=== PATIENT | female | born 1980 | race Caucasian/White ===

== ENCOUNTER 2018-04-24 12:06 | Day surgery (SDC) | payer OTHER, SELFPAY ==
[2018-04-12 10:49] LABS: Hematocrit 32.9 % (37-47); Hemoglobin 10.5 g/dl (12.0-15.0); International Normalized Ratio 0.9; Mean Corp Hgb Conc 31.9 g/gl (32-36); Mean Corpuscular Hgb 27.6 pg (27.0-32.0); Mean Corpuscular Volume 86.6 fL (81-99); Mean Platelet Vol. 10.9 fl (6.2-12.0); Platelet Count 265 K/mm3 (150-450); Prothrombin Time (Protime)PT. 12.5 SECONDS (11.7-14.9); RBC Distribution Width CV 18.4 % (11.6-14.6); RBC Distribution Width SD 57.2 fl (35.1-43.9); White Blood Count 3.7 K/mm3 (4.4-11.0)
[2018-04-12 10:50] LABS: Partial Thromboplast Time 26.5 Seconds (24.1-36.2)
[2018-04-12 10:56] LABS: Scan Indicated on CBC? Y/N NO
[2018-04-12 11:13] LABS: Anion Gap 6 (5-15); BUN 11 mg/dL (7-18); BUN/Creat Ratio 11.1 RATIO (10-20); Calcium,Total 8.5 mg/dL (8.5-10.1); Chloride 108 mmol/L (98-107); Creatinine, Serum 0.99 mg/dL (0.55-1.02); EST Glomerular Filtration Rate 66 mL/min (>60); Est Glom Filt Rate - Afr Amer 80 mL/min (>60); Glucose 89 mg/dL (74-106); Potassium 4.1 mmol/L (3.5-5.1); Sodium Level 140 mmol/L (136-145)
[2018-04-24] VITALS (9 sets, daily range): BP systolic 106–144; BP diastolic 52–77; PULSE 63–74; RESP 16–18; TEMP 36.2–37.1; O2SAT 95–100; BMI 32.4; BMI 32.5
[2018-04-24 12:46] LABS: Internal QC Validated? YES +Cl - CLEAR BKGD; Pregnancy, Urine Negative Negative
--- NOTE | 2018-04-24 13:45 | HYST_PTH ---
PATIENT: STEPHANY GAMBOA LOC: [facility] – [place] U#:[id number] AGE/SX: 37/F ROOM: RE04/24/[address]: Dr. Holly Bennett MD : 1980 BED: DIS: 04/25/2018 SPEC #: [id number] RECD: 04/25/18 08:38 STATUS: ISAIAS TYELR #: [id number] SILVIA: 04/24/18 13:[address]: Holly Bennett DEPT: SURGICAL PATHOLOGY RECD BY: Chance Minaya ENTERED: 04/25/18 09:06 SP TYPE: HYSTERECT OTHR DR: Dr. Jennifer Loaiza MD Tissues: Uterus, NOS Procedures: Surgery Specimen Level V HEADER OPERATION: Hysterectomy, lap-assisted vaginal, salpingectomy PRE-OP DIAGNOSIS: Submucous leiomyoma, excessive bleeding in premenopausal period TISSUE SUBMITTED: Uterus, bilateral fallopian tubes MICROSCOPIC DIAGNOSIS Uterus, hysterectomy: Cervix ? nabothian cysts, squamous metaplasia and mild chronic inflammation. Endometrium ? secretory endometrium. Myometrium ? leiomyoma. Right and left fallopian tubes ? no pathologic change. AM:rustam 04/26/18 MICROSCOPIC DESCRIPTION Slides are reviewed. GROSS DESCRIPTION Received in fixative is one container labeled with the patient's name and designated uterus, bilateral fallopian tubes. The specimen consists of a hysterectomy specimen consisting of uterus with cervix in multiple pieces and attached one fallopian tube to one of the pieces of uterus and one detached fallopian tube. The uterus with cervix weighs in aggregate 331 gm. The cervix measures 5.5 x 4 x 2.5 cm. The ectocervical mucosa is focally congested. The external os is oval and patulous in contour. The endocervical canal measures 4 cm in length and the endocervical mucosa is caceres, glistening and unremarkable. Sections of cervix reveal a few cysts filled with mucoid material. The uterus in multiple pieces measures in aggregate 15 x 15 x 6 cm. Sections of one of the pieces reveal possible endometrial cavity which measures 0.1 cm in thickness, congested and hemorrhagic and without any mass lesion. One of the detached pieces of tissue consists of nodular mass measuring 6 cm in diameter. Sections of this mass reveals caceres whorled cut surfaces without areas of hemorrhage, necrosis or cystic degeneration. Sections of the rest of the specimen reveal no additional mass lesion and uterine wall measures up to 3 cm in thickness. The detached fallopian tube is similar appearance to the other one and measures 6 cm in length and 0.5 cm in diameter. Oncology Radiation Physician sections are submitted in 11 cassettes as follows: 1 & 2 - cervix, 3-6 - uterine wall with possible endometrial lining tissue, 7-9 ? nodular mass, 10 ? attached fallopian tube, 11 ? detached fallopian tube. / Naresh 04/25/18 TC:1 CPT: 22122
--- NOTE | 2018-04-24 13:57 | PCM.DC.VHY ---
Discharge Diet: No Restrictions Discharge Activity: May not drive while taking narcotic pain medications., May Shower, May Take a Tub Bath Return to work on:: 06/10/18 May resume sexual activity in: 4-6 weeks Lifting Restrictions: limit to 20 lbs for 4-6 wks to allow healing. Call your doctor if you observe: Fever of 101 or Higher, Using more than one pad per hour, Calf discomfort, Uncontrolled pain Change Dressing in (Days):: 4 Remove Dressing in (days):: 4 Cleanse incision/area with: Soap & Water, Keep Dressing Clean & Dry Allergies/Adverse Reactions: Allergies Penicillins [PCN] Allergy (Verified 04/11/18 13:36) Rash Medications to take at Discharge L.acidoph,Paracasei, B.lactis [Probiotic] 1 each PO DAILY 04/11/18 Omeprazole 40 mg PO DAILY 04/11/18 traZODone [Desyrel] 150 mg PO QHS 04/11/18 Docusate Sodium [Colace] 100 mg PO BID #30 cap 04/24/18 Ferrous Sulfate [Iron] 325 mg PO BID #60 tab 04/24/18 Ibuprofen 800 mg PO Q8H PRN PRN #30 tab 04/24/18 Oxycodone [Oxyir] 5 - 10 mg PO Q6H PRN PRN 7 Days #28 tablet 04/24/18 Polyethylene Glycol 3350 [Miralax] 17 gm PO DAILY PRN #10 packet 04/24/18 The following prescriptions were given: Oxycodone [Oxyir] 5 - 10 mg PO Q6H PRN PRN 7 Days #28 tablet PRN Reason: Mod-Severe Pain (4-10/10) Ibuprofen 800 mg PO Q8H PRN PRN #30 tab PRN Reason: Mild-Mod Pain (1-5/10) Polyethylene Glycol 3350 [Miralax] 17 gm PO DAILY PRN #10 packet PRN Reason: Constipation Docusate Sodium [Colace] 100 mg PO BID #30 cap Ferrous Sulfate [Iron] 325 mg PO BID #60 tab Primary Care Physician: Jennifer Loaiza [Primary Care Provider] - Please Follow Up With: Holly Bennett MD - [phone] When: in 2 wk for postop appointment
--- NOTE | 2018-04-24 16:06 | PCM.IMDPSTOP ---
Immediate Post-Op Note Date of Procedure: 04/24/18 Primary Surgeon/Physician: Holly Bennett lap layer: Hina Mace lap layer: Anahy Valera RN Pre-Operative Diagnosis: Menorrhagia, fibroid uterus, chronic blood loss anemia Post-Operative Diagnosis: Same. S/P LAVH, bilateral salpingectomy Surgery/Procedure Performed:: LAVH, bilateral salpingectomy Description of Surgical Findings:: See op note to follow. Bilateral salpingectomy. Uterus sent as morcellated specimen. (morcellated transvaginally) Estimated Blood Loss: 490 Specimen's removed: Morcellated uterus, bilateral fallopian tubes Drains: grady, clear yellow urine 190 cc + for case Type of Anesthesia:: General - AA. Dr. Gideon Pruitt. - Admit VTE Documentation VTE Present on Admission: No VTE Mechan Device Prophylaxis: SCD's VTE Pharm Prophylaxis ordered?: Yes
--- NOTE | 2018-04-24 16:09 | OP.PN_ITS ---
Immediate Post-Op Note Date of Procedure: 04/24/18 Primary Surgeon/Physician: Holly Bennett back stayer: Hina Mace back stayer: Anahy Valera RN Pre-Operative Diagnosis: Menorrhagia, fibroid uterus, chronic blood loss anemia Post-Operative Diagnosis: Same. S/P LAVH, bilateral salpingectomy Surgery/Procedure Performed:: LAVH, bilateral salpingectomy Description of Surgical Findings:: See op note to follow. Bilateral salpingectomy. Uterus sent as morcellated specimen. (morcellated transvaginally) Estimated Blood Loss: 490 Specimen's removed: Morcellated uterus, bilateral fallopian tubes Drains: grady, clear yellow urine 190 cc + for case Type of Anesthesia:: General - AA. Dr. Gideon Pruitt. - Admit VTE Documentation VTE Present on Admission: No VTE Mechan Device Prophylaxis: SCD's VTE Pharm Prophylaxis ordered?: Yes
[2018-04-24] MEDS: Lactated Ringers 1,000 ML 125 ML IV ×2 (17:48→20:52)
[2018-04-24] MEDS: Ketorolac 30 MG/ML Syringe IV (18:16)
[2018-04-24] MEDS: oxyCODONE 5 MG Tablet PO ×2 (18:56→23:10)
--- NOTE | 2018-04-24 20:47 | PCM.OP.BLANK ---
Operative Report Date of Procedure: 04/24/18 PROCEDURE: Laparoscopic assisted vaginal hysterectomy. Bilateral salpingectomy Preoperative diagnosis: Enlarged, fibroid uterus. Menorrhagia Chronic blood loss anemia Postop diagnosis: Enlarged, fibroid uterus. Menorrhagia Chronic blood loss anemia Anesthesia: General DEZ Pruitt and Dr Meneses Surgeon: Holly Bennett MD Assistants: VALENTÍN Campos, RN EBL 490 cc Complications: none Drains: Ayoub draining clear yellow urine 180 cc + for case Fluids: replacement LR Findings: On exam under anesthesia, the cervix prolapses to introitus with application of tenaculum and traction. At Laparoscopy: the uterus is globally enlarged and fills the pelvis . There are no significant adhesions in the pelvis . There are normal appearing fallopian tubes and ovaries bilaterally. PATH: Uterus, bilateral fallopian tubes Narrative account: After the risks, benefits and alternatives of the procedure were reviewed with the patient , informed consent was obtained. The patient was taken to the Operating room with an IV running . She was positioned in the dorsal supine position on the operating table with the arms tucked at the sides, and given general anesthesia. Once asleep she was positioned to the dorsal lithotomy position and prepped and draped in the usual sterile fashion. A Ayoub catheter was inserted to drain the bladder. The weighted speculum was placed into the vagina and a single tooth tenaculum was placed at the cervix. A ZUMI uterine manipulator was placed into the cervicx and the balloon inflated to use as manipulator for the uterus and cervix during the case. Attention was then turned to the anterior abdominal wall. the wet mix operator's gloves were changed and skin incisions were created at the infraumbilical and suprapubic skin and at a point approximately intermediate between the suprapubic and infraumbilical skin incisions. Local anesthesia was used to infiltrate the skin where the trocar incision sites were created. A transverse 5 mm infraumbilical skin incision , a transverse 5 mm suprapubic incision and an transverse 5 mm midline incision were created. A Veress needle was inserted in to the peritoneal cavity at the infraumbilical skin incision while maintaining upward traction of the anterior abdominal wall at the umbilicus. There was free flow of CO2 and low opening pressure noted. Once the intraabdominal pressure had reached approximately 15 mm HG, the Veress needle was removed and a bladeless 5 mm trocar was inserted into the peritoneal cavity. Correct placement was confirmed using the laparoscope. Under direct visualization the other two 5 mm bladeless trocars were inserted through the skin incisions in the lower abdomen into the peritoneal cavity. The fallopian tubes were retracted medially and using a LigaSure device the fallopian tube was divided from the ovary and the mesosalpinx, leaving the fallopian tube free at each side of the uterus other than the attachment to the uterus. The right fallopian tube was removed by LigaSure for better visualization and brought through the suprapubic trocar and set aside for later pathology review. The uteroovarian pedicles were then divided using a [place] LigaSure device. The broad ligament was then divided down to the level of the round ligament on both sides. At this point the laparoscopic portion of the case was completed. The trocars were left in place, but the instruments were removed and gas turned off. A sterile drape was used to cover the abdomen. Attention was then turned to the vaginal portion of the case. The ZUMI uterine manipulator was removed from the cervix and the single toothed tenaculum repositioned on the cervix. The Ayoub catheter which had been draining into the drape pocket, was clamped off and placed upon the drape at the lower abdomen. The cervical mucosa was then incised circumferentially using Bovie cautery and a knife. The posterior cul de sac was entered by sharp dissection with Blanco scissors and a long weighted Kori Auvard speculum was placed into the posterior cul se sac. Dissection then was initiated at the anterior cervix to enter the anterior cul se sac. The uterosacral ligaments were clamped bilaterally with curved Stephanie clamps and the pedicles divided and suture ligated and tagged for later identification. Next the cardinal ligament was clamped bilaterally and divided and suture ligated. Adequate hemostasis was noted. The anterior cul de sac peritoneum was then entered by sharp dissection and a narrow Cyndee retractor was placed into the anterior cul de sac to retract the bladder out of harm's way for the remainder of the case. The uterine arteries were clamped bilaterally , divided and suture ligated. At this point no further descensus was noted due to the enlarged uterus, and morcellation was begun. Each section was removed by using either the knife or a Blanco scissors. The cervix and sequential portions of the lower uterine segment anteriorly and posteriorly as well as several separate fibroids were removed and set aside. Dissection then continued along each side of the uterus. Each pedicle was secured with a Stephanie clamp, divided and suture ligated until ultimately the uterine fundus was reached. The superior pedicles on each side were secured with a curved Stephanie clamp and the remaining uterus and attached left fallopian tube were surgically amputated and set aside. The superior pedicle was then suture ligated, then free tied and tagged for identification. The superior pedicles were dry. There was bleeding noted along the posterior vaginal cuff . The peritoneum was then closed with a running purse string suture of 1 Vicryl, incorporating the superior pedicles and uterosacral ligament tags. Excellent hemostasis was noted. The vaginal cuff was then reapproximated using interrupted and figure of eight stitches of 1 Vicryl. The clamp placed on the Ayoub was removed, and clear yellow urine returned. A second look was performed with the laparoscope: excellent hemostasis was noted at all pedicles and at the vaginal cuff. Jh was sprayed along the cuff and pedicles for additional hemostasis. The pneumoperitoneum was reduced and all instruments and trocars were removed. The skin incisions were closed with 4-0 Monocryl in a subcuticular fashion. Sterile dressings were applied. (steristrips and op sites) The patient was returned to dorsal supine position and awakened from general anesthesia. She was then transferred to the recovery room bed in stable condition after tolerating the procedure well. Sponge, lap, needle and instrument counts correct times two. Medications given preop and intraoperatively included: Cefotetan given IV business relations manager to the operating room , 10 cc of Lidocaine with 1/200,00 epinephrine was used as a subcutaneous injection at the trocar skin incision sites, and Toradol 30 mg IV x one was given. For a complete listing of medications given preop and intraoperatively, please see the anesthesia record.
[2018-04-24] MEDS: Acetaminophen 500 MG Tablet 1000 MG PO (22:31)
[2018-04-24] MEDS: traZODone 100 MG Tablet 150 MG PO (22:32)
[2018-04-25] VITALS (7 sets, daily range): BP systolic 84–93; BP diastolic 40–50; PULSE 58–64; RESP 16–18; TEMP 36.7–36.9; O2SAT 94–98
[2018-04-25] MEDS: Ketorolac 30 MG/ML Syringe IV ×2 (00:24→06:05)
[2018-04-25] MEDS: 0.9% NaCl Peripheral Flush Adult/Peds IV (00:24)
[2018-04-25] MEDS: Lactated Ringers 500 ML IV (03:29)
[2018-04-25] MEDS: Acetaminophen 500 MG Tablet 1000 MG PO (06:05)
[2018-04-25 06:09] LABS: Hematocrit 24.3 % (37-47); Hemoglobin 7.8 g/dl (12.0-15.0); Mean Corp Hgb Conc 32.1 g/gl (32-36); Mean Corpuscular Hgb 28.1 pg (27.0-32.0); Mean Corpuscular Volume 87.4 fL (81-99); Mean Platelet Vol. 10.9 fl (6.2-12.0); Platelet Count 198 K/mm3 (150-450); RBC Distribution Width CV 16.3 % (11.6-14.6); RBC Distribution Width SD 51.4 fl (35.1-43.9); Red Blood Count 2.78 M/mm3 (4.2-5.4); White Blood Count 5.4 K/mm3 (4.4-11.0)
[2018-04-25 06:22] LABS: Anion Gap 8 (5-15); BUN 8 mg/dL (7-18); BUN/Creat Ratio 9.2 RATIO (10-20); Calcium,Total 7.4 mg/dL (8.5-10.1); Chloride 106 mmol/L (98-107); Creatinine, Serum 0.87 mg/dL (0.55-1.02); EST Glomerular Filtration Rate 77 mL/min (>60); Est Glom Filt Rate - Afr Amer 93 mL/min (>60); Estimated Creatinine Clearance 97.03 ml/min; Glucose 84 mg/dL (74-106); Potassium 3.5 mmol/L (3.5-5.1); Sodium Level 140 mmol/L (136-145)
--- NOTE | 2018-04-25 06:29 | NURSING ---
Pt c/o chest tightness to mid-chest, no sob noted, respirations 18/min, lung sounds clear throughout. Pt stated she feels it worse with deep breathing, pt using incentive spirometer well. Sats 98% on roomair.
[2018-04-25 06:35] LABS: Scan Indicated on CBC? Y/N NO
--- NOTE | 2018-04-25 07:42 | PCM.PROGNOTE ---
Subjective: POD#1 LAVH, Bilateral salpingectomy Doing well. Pain control adequate. Sore over abdomen. Ayoub out for voiding trial. States slight heavy feeling in chest with deep breaths only. - Physical Exam General: Alert, Oriented x3, Cooperative, No apparent distress HEENT: Atraumatic Neck: Supple Abdomen: Soft - minimally tender consistent with postop status. Skin: Incision - L/S incision dressings CDI (op sites x three) Neurological: Cranial nerves II-XII grossly intact Psych/Mental Status: Normal Affect Vital Signs Temp Pulse Resp BP Pulse Ox 98.1 F 64 18 93/49 L 94 / 06:20 04/25/18 06:20 04/25/18 06:20 04/25/18 06:20 04/25/18 07:13 Oxygen Flow Rate (L/min) 2 Oxygen Delivery Method Room Air Weight: 105.6 kg Body Mass Index (BMI) 32.4 Intake and Output for Last 24 Hours 04/23/04/24/18 04/25/18 23:59 23:59 23:59 Intake Total 3200 / 3200 2682 / 2682 Output Total 260 / 260 450 / 450 Balance 2940 / 2940 2232 / 2232 Laboratory Tests Past 24 Hrs 04/24/18 04/25/18 04/25/18 12:33 05:28 05:28 WBC 5.4 RBC 2.78 L Hgb 7.8 L Hct 24.3 L MCV 87.4 MCH 28.1 MCHC 32.1 RDW 16.3 H RDW Differential 51.4 H Plt Count 198 MPV 10.9 Sodium 140 Potassium 3.5 Chloride 106 Carbon Dioxide 26.0 Anion Gap 8 BUN 8 Creatinine 0.87 Estim Creat Clear Calc 97.03 Est GFR (MDRD) Af Amer 93 Est GFR (MDRD) Non-Af 77 BUN/Creatinine Ratio 9.2 L Glucose 84 Calcium 7.4 L Urine Test Negative Medical Necessity - Tobacco Use Smoking Status: Former smoker Assessment/Plan POD#1 LAVH, Bilateral salpingectomy Stable postop. Hgb as anticipated with acute blood loss at surgery superimposed on chronic iron deficiency anemia d/t menorrhagia. Vital signs stable. iron bid planned for one mo postop. Dischg home today when criteria met. voiding trial in progress.
[2018-04-25] MEDS: oxyCODONE 5 MG Tablet PO (09:32)
== END 2018-04-25 10:04 | disposition home or self-care (01) ==
LOC: SDC 12:09 → AC 12:10 → MS3 04-25 11:41
PROVIDERS: Family Provider Internal Medicine; PCP Internal Medicine; Visit Provider Obstetrics & Gynecology
PROC: 0UT9FZZ Resection of Uterus, Via Natural or Artificial Opening With Percutaneous Endoscopic Assistance (ICD-10-PCS; CPT 58552; principal; 2018-04-24 13:20)
DX: N88.8 Other specified noninflammatory disorders of cervix uteri (principal); N92.0 Excessive and frequent menstruation with regular cycle; D50.0 Iron deficiency anemia secondary to blood loss (chronic); Z87.891 Personal history of nicotine dependence
CPT/HCPCS: 00840; 58552; 36415; 80048; 81025; 85027; 85610; 85730; 86850; 86900; 88307; J7120; A4216; J2405

== ENCOUNTER → 2018-05-09 11:37 | Outpatient (CLI) | payer OTHER, SELFPAY ==
[2018-05-09 12:21] LABS: Hematocrit 34.8 % (37-47); Hemoglobin 11.2 g/dl (12.0-15.0); Mean Corp Hgb Conc 32.2 g/gl (32-36); Mean Corpuscular Hgb 28.1 pg (27.0-32.0); Mean Corpuscular Volume 87.2 fL (81-99); Mean Platelet Vol. 10.5 fl (6.2-12.0); Platelet Count 286 K/mm3 (150-450); RBC Distribution Width CV 16.5 % (11.6-14.6); RBC Distribution Width SD 52.8 fl (35.1-43.9); Red Blood Count 3.99 M/mm3 (4.2-5.4); White Blood Count 4.5 K/mm3 (4.4-11.0)
[2018-05-09 12:32] LABS: Scan Indicated on CBC? Y/N NO
== END ==
PROVIDERS: Visit Provider Obstetrics & Gynecology
DX: D50.0 Iron deficiency anemia secondary to blood loss (chronic) (principal)
CPT/HCPCS: 36415; 85027